=== PATIENT | female | born 1965 | race Caucasian/White ===

== ENCOUNTER 2019-02-11 21:39 | Inpatient (IN) | payer MEDICARE, OTHER ==
[~2019-02-11] VITALS: Ht 162.6 cm; Wt 68.0 kg
[~2019-02-11 21:39] MED LIST: BUPR150T10 PO; CLON1TAB12 PO; ESCI10TA PO; GABA-534 PO; PROG100C15 PO; VALA500T36 PO
--- NOTE | 2019-02-11 22:25 | NUR ---
GPS-GROUNDWATER CONSULTANT NOTES: ADMITTED A 53 YR-OLD, DIRECT ADMIT, FEMALE, FROM [facility]. ADMITTED ON 5150 FOR DTS. PER HOLD, PATIENT STATED SHE WANTED TO KILL HERSELF. UPON FACE TO FACE ASSESSMENT, PATIENT IS ALERT, ORIENTED X3, CALM, COOPERATIVE, DEPRESSED, INTERACTS WHEN ENGAGED. DENIES SI/HI OR HALLUCINATIONS AT THIS TIME. IN NO APPARENT DISTRESS NOTED. DENIES ANY PAIN OR DISCOMFORT. BELONGINGS WERE INVENTORIED AND CHECKED FOR CONTRABAND. PT. IS UNDER THE PSYCHIATRIC CARE OF DR. DANIEL SORIANO OBTAINED, AND UNDER THE MEDICAL CARE OF DR. CANALES. SKIN ASSESSMENT DONE INTACT. BED LOCKED AND PLACED ON LOWEST POSITION TO MAINTAIN SAFETY. FALL PRECAUTIONS IMPLEMENTED. WILL CONTINUE TO MONITOR Q15 MINS. FOR SAFETY AND BEHAVIOR. Addendum: 02/12/19 at 0555 by MARIAN MACK RN WILL ENDORSE TO ONCOMING NURSE TO NOTIFY MD TO RECONCILE HOME MEDS.
[2019-02-11] MEDS ORDERED: MAGNESIUM HYDROXIDE 30 ML UDC PO PRN (22:30)
[2019-02-11] MEDS ORDERED: MAG HYDROX/AL HYDROX/SIMETH 30 ML UDC PO PRN (22:30)
--- NOTE | 2019-02-11 23:40 | NUR ---
GPS-RN NOTIFIED KOKO CANALES REGARDING PT'S ADMISSION AND HOME MEDS TO RECONCILE.
[2019-02-12 00:19] VITALS: BP 149/96
[2019-02-12 08:00] VITALS: BP 100/58
[2019-02-12] MEDS ORDERED: OMEP20CA10 PO (08:50)
[2019-02-12] MEDS ORDERED: CHOL100044 PO (08:50)
[2019-02-12] MEDS ORDERED: BUPR300T54 PO (08:50)
[2019-02-12] MEDS ORDERED: PREG100C PO (08:52)
[2019-02-12 09:33] LABS: BASOPHILS % (AUTO) 0.3 % (0.0-2.0); EOSINOPHILS % (AUTO) 1.2 % (0.0-6.0); HEMATOCRIT 43 % (33-45); HEMOGLOBIN 14.7 g/dL (11.5-14.8); LYMPHOCYTES # (AUTO) 1.9 /CMM (0.8-4.8); LYMPHOCYTES % (AUTO) 32.2 % (20.0-44.0); MEAN CORPUSCULAR HGB CONC 34 g/dl (31.0-36.0); MEAN CORPUSCULAR VOLUME 90 fL (82-100); MONOCYTES # (AUTO) 0.4 /CMM (0.1-1.30); MONOCYTES % (AUTO) 7.4 % (2.0-12.0); NEUTROPHILS # (AUTO) 3.4 /CMM (1.8-8.9); NEUTROPHILS % (AUTO) 58.9 % (43.0-81.0); PLATELET COUNT (AUTO) 173 /CMM (150-450); RED BLOOD CELL COUNT(AUTO) 4.79 MIL/uL (4.0-5.2); WHITE BLOOD COUNT (AUTO) 5.8 K/uL (4.3-11.0)
[2019-02-12 09:50] LABS: ALBUMIN 3.9 g/dL (3.4-5.0); CALCIUM, SERUM 8.7 mg/dL (8.5-10.1); CREATININE 0.9 mg/dL (0.6-1.3); POTASSIUM 3.9 mmol/L (3.5-5.1); TOTAL PROTEIN, SERUM 6.6 g/dL (6.4-8.2)
[2019-02-12 09:51] LABS: CHOLESTEROL 173 mg/dL (<200); HDL CHOLESTEROL 49 mg/dL (40-60); LDL 101 mg/dL (0-99); TRIGLYCERIDES 161 mg/dL (30-150)
[2019-02-12] MEDS: BUPROPION XL 150 MG TAB.ER.24 PO SCH (14:25)
[2019-02-12] MEDS: ESCITALOPRAM OXALATE (10 MG) 10 MG TABLET PO SCH (14:25)
[2019-02-12 16:00] VITALS: BP 105/65
[2019-02-12] MEDS: PREGABALIN 100 MG CAPSULE PO SCH (17:17)
[2019-02-12 19:44] VITALS: BP 135/81
[2019-02-13 08:00] VITALS: BP 95/65
[2019-02-13] MEDS: CHOLECALCIFEROL 1,000 UNIT TABLET (VIT D3) PO SCH (08:26)
[2019-02-13] MEDS: ESCITALOPRAM OXALATE (10 MG) 10 MG TABLET PO SCH (08:27)
[2019-02-13] MEDS: VALACYCLOVIR HCL 500 MG TABLET PO SCH (08:27)
[2019-02-13] MEDS: PANTOPRAZOLE 40 MG TABLET.DR PO SCH (08:27)
[2019-02-13] MEDS: BUPROPION XL 150 MG TAB.ER.24 PO SCH (09:33)
[2019-02-13 17:11] VITALS: BP 140/95
[2019-02-13] MEDS: PREGABALIN 100 MG CAPSULE PO SCH (17:55)
[2019-02-13 20:17] VITALS: BP 113/86
[2019-02-14 08:00] VITALS: BP 107/61
[2019-02-14] MEDS: PANTOPRAZOLE 40 MG TABLET.DR PO SCH (09:14)
[2019-02-14] MEDS: BUPROPION XL 150 MG TAB.ER.24 PO SCH (09:15)
[2019-02-14] MEDS: VALACYCLOVIR HCL 500 MG TABLET PO SCH (09:15)
[2019-02-14] MEDS: CHOLECALCIFEROL 1,000 UNIT TABLET (VIT D3) PO SCH (09:16)
[2019-02-14] MEDS: ESCITALOPRAM OXALATE (10 MG) 10 MG TABLET PO SCH (09:16)
--- NOTE | 2019-02-14 11:00 | NUR ---
INITIAL DISCHARGE PLAN: Patient wished to return home to [address] [place] [address] . Pt will be transported back home through [facility]. SHIVA will help form a safe and proper discharge in collaboration with .
[2019-02-14] MEDS: QUETIAPINE FUMARATE 25 MG TABLET PO SCH ×2 (14:55→17:00)
[2019-02-14 16:00] VITALS: BP 126/77
--- NOTE | 2019-02-14 17:37 | NUR ---
GPS/RN-NOTES SEROQUEL 50 MG P.O NOT ADMINISTER DUE TO FIRST DOSE WAS GIVEN AT 1455.
[2019-02-14] MEDS: PREGABALIN 100 MG CAPSULE PO SCH (18:07)
[2019-02-14 19:57] VITALS: BP 94/59
[2019-02-14 20:32] VITALS: BP 94/59
--- NOTE | 2019-02-15 | NUR ---
DISTANCE LEARNING PROGRAM COORDINATOR NOTES REMAIN RESTING WITHOUT ANY DISTRESS NOTED. WILL CONTINUE MONITORING.
[2019-02-15 08:23] VITALS: BP 105/64
[2019-02-15] MEDS: PANTOPRAZOLE 40 MG TABLET.DR PO SCH (08:56)
[2019-02-15] MEDS: VALACYCLOVIR HCL 500 MG TABLET PO SCH (09:19)
[2019-02-15] MEDS: CHOLECALCIFEROL 1,000 UNIT TABLET (VIT D3) PO SCH (09:19)
[2019-02-15] MEDS: BUPROPION XL 150 MG TAB.ER.24 PO SCH (09:19)
[2019-02-15] MEDS: QUETIAPINE FUMARATE 25 MG TABLET PO SCH ×2 (09:20→17:34)
--- NOTE | 2019-02-15 09:44 | NUR ---
SUPPORTIVE COUNSELING: SW spoke with pt regarding her symptoms of kevin and her medication compliance. Pt stated that she is not feeling like herself with the new medication and wants to speak to the psychiatrist about making adjustments. SW stated that she would also inform psychiatrist of her concerns with her medication. Pt is withdrawn and stays to herself most of the time. SW addressed this and pt stated she liked being alone as the noises in the unit triggered her anxiety. Pt is eager to leave and stated that she she needs to leave soon as she has stuff to care of at home.
[2019-02-15 16:00] VITALS: BP 107/61
[2019-02-15] MEDS: PREGABALIN 100 MG CAPSULE PO SCH (17:34)
[2019-02-15 19:37] VITALS: BP 94/59
[2019-02-16 08:00] VITALS: BP 114/90
[2019-02-16] MEDS: PANTOPRAZOLE 40 MG TABLET.DR PO SCH (08:00)
[2019-02-16] MEDS: QUETIAPINE FUMARATE 25 MG TABLET PO SCH ×2 (08:00→17:11)
[2019-02-16] MEDS: VALACYCLOVIR HCL 500 MG TABLET PO SCH (08:00)
[2019-02-16] MEDS: BUPROPION XL 150 MG TAB.ER.24 PO SCH (08:00)
[2019-02-16] MEDS: CHOLECALCIFEROL 1,000 UNIT TABLET (VIT D3) PO SCH (08:00)
--- NOTE | 2019-02-16 10:30 | NUR ---
SUPPORTIVE COUNSELING: SHIVA informed pt that she has a Probable Cause hearing on this present day. Pt stated that she wants to attend the hearing and contest as she feels she no longer needs to be hospitalized. SHIVA explained to pt that if the court released pt that transportation needed to be arranged with [facility] as they needed 24 hour notice. Pt stated that if released on this present day she would take the train home instead of waiting for transpiration provided by [facility].
[2019-02-16] MEDS: DIVALPROEX SODIUM 250 MG TABLET.DR PO SCH ×2 (14:00→17:00)
--- NOTE | 2019-02-16 14:00 | NUR ---
Pt filed for a Habeas Corpus Write Hearing on this present day as pts 5250 was upheld for gravely disabled.
[2019-02-16] MEDS: PREGABALIN 100 MG CAPSULE PO SCH (17:10)
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
[2019-02-16] MEDS: ACETAMINOPHEN 325 MG TABLET PO PRN (18:38)
--- NOTE | 2019-02-16 18:46 | NUR ---
GPS NOTE THE PATIENT REFUSED DEPAKOTE DESPITE EXPLAINING RISKS AND BEMEFITS MULTIPLE TIMES.
[2019-02-16 20:00] VITALS: BP 117/74
[2019-02-17 08:00] VITALS: BP 141/95
[2019-02-17] MEDS: VALACYCLOVIR HCL 500 MG TABLET PO SCH (08:56)
[2019-02-17] MEDS: QUETIAPINE FUMARATE 25 MG TABLET PO SCH ×2 (08:56→17:44)
[2019-02-17] MEDS: PANTOPRAZOLE 40 MG TABLET.DR PO SCH (08:56)
[2019-02-17] MEDS: BUPROPION XL 150 MG TAB.ER.24 PO SCH (08:56)
[2019-02-17] MEDS: DIVALPROEX SODIUM 250 MG TABLET.DR PO SCH ×3 (08:56→17:44)
[2019-02-17] MEDS: CHOLECALCIFEROL 1,000 UNIT TABLET (VIT D3) PO SCH (08:56)
--- NOTE | 2019-02-17 15:19 | NUR ---
SUPPORTIVE COUNSELING: SW addressed pts lack of insight into her mental illness. SW provided reality based insight and explained to pt that making statements such as, "I'll stab myself to get out of here" will only prolong her hospitalization. Pt stated that she has been compliant with her medication and that all she wants is to leave so she can attend to her house and car which she is in the verge of losing. SW provided pt with insight and provided tools to better cope with her current stressors. SW also informed pt that she will be referring her to mental health services in [facility]. Pt stated that she is banned from the [facility] and that no one cares about her. Pt was interrupting SW and pt was difficult to redirect. Pts mood was labile and crying during most of the conversation.
--- NOTE | 2019-02-17 15:32 | NUR ---
SHIVA contacted Shabana at [facility] [phone] to arrange transportation for pts discharge on Wednesday02/20/19. Shabana stated she would call SHIVA back with a chicken picker time.
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
[2019-02-17 16:00] VITALS: BP 116/71
--- NOTE | 2019-02-17 16:05 | NUR ---
SHIVA emailed Shabana at [facility] [phone] [email or web address] with [employer]tra[employer] schedule.
[2019-02-17 16:24] VITALS: BP 116/71
[2019-02-17] MEDS: PREGABALIN 100 MG CAPSULE PO SCH (17:44)
[2019-02-17 19:55] VITALS: BP 95/63
[2019-02-18] MEDS: ACETAMINOPHEN 325 MG TABLET PO PRN (04:58)
[2019-02-18 08:00] VITALS: BP 127/70
--- NOTE | 2019-02-18 08:30 | NUR ---
ALERT AND ORIENTED X3.NO SPECIFIC COMPLAINTS OFFERED.REFUSED DEPAKOTE LAB DRAW.
[2019-02-18] MEDS: DIVALPROEX SODIUM 250 MG TABLET.DR PO SCH ×5 (09:00→18:08)
[2019-02-18] MEDS: CHOLECALCIFEROL 1,000 UNIT TABLET (VIT D3) PO SCH (09:21)
[2019-02-18] MEDS: BUPROPION XL 150 MG TAB.ER.24 PO SCH (09:21)
[2019-02-18] MEDS: PANTOPRAZOLE 40 MG TABLET.DR PO SCH (09:21)
[2019-02-18] MEDS: QUETIAPINE FUMARATE 25 MG TABLET PO SCH ×2 (09:22→18:07)
[2019-02-18] MEDS: VALACYCLOVIR HCL 500 MG TABLET PO SCH (09:22)
--- NOTE | 2019-02-18 15:53 | NUR ---
INDECISIVE ABOUT DEPAKOTE.STATED FINALLY THAT SHE WOULD TAKE MED AFRAID MD WOULD NOT SEND HER HOME IF SHE REFUSED MEDS.
[2019-02-18 16:00] VITALS: BP 102/62
[2019-02-18] MEDS: PREGABALIN 100 MG CAPSULE PO SCH (18:07)
--- NOTE | 2019-02-18 18:48 | NUR ---
NO CHANGE IN STATUS.
--- NOTE | 2019-02-18 19:30 | NUR ---
GPS RN NOTE, RECEIVED PATIENT AWAKE AND IN ROOM NO S/S OR COMPLAINTS OF PAIN AT THIS TIME. PATIENT IS DISPLAYING NO S/S OF APPARENT DISTRESS AT THIS TIME. PATIENT BREATHING IS UNLABORED WITH EQUAL RISE AND FALL OF THE CHEST. PATIENT IS ALERT AND ORIENTED X 4 ON ROOM AIR WITH A SPO2 OF 96%. PATIENT IS MED SELECTIVE, CALM, DEPRESSED, COOPERATIVE, UNKEPT AND NEEDS REORIENTATION. PATIENT DENIES SUICIDE AND HOMICIDAL IDEATIONS AT THIS TIME. PATIENT ASSISTED WITH TURNING AND REPOSITIONING Q2HR AND PRN FOR COMFORT AND CIRCULATION. PATIENT HAS NO NEEDS AT THIS TIME. PATIENT EDUCATED ON THE USE OF THE CALL RIOS. PATIENT BED SIDE RAILS ARE UP X 2 FOR SAFETY, BED IS LOCKED AND LOW. WILL CONTINUE TO MONITOR AND MAINTAIN SAFETY Q15 MIN WITH THE HELP OF STAFF.
[2019-02-18 20:00] VITALS: BP 120/92
[2019-02-19 08:00] VITALS: BP 126/68
--- NOTE | 2019-02-19 08:00 | NUR ---
RN NOTES INFORMED PHARMACY THAT THE OMNICELL NEEDED TO BE RESTOCKED WITH SEROQUEL 25MG.
--- NOTE | 2019-02-19 08:05 | NUR ---
RN NOTES PT REQUESTED TO TAKE ALL MEDICATIONS WHEN THEY ARE AVAILABLE. WILL CONTINUE TO FOLLOW UP.
[2019-02-19] MEDS: QUETIAPINE FUMARATE 25 MG TABLET PO SCH ×2 (09:15→16:34)
[2019-02-19] MEDS: PANTOPRAZOLE 40 MG TABLET.DR PO SCH (09:16)
[2019-02-19] MEDS: CHOLECALCIFEROL 1,000 UNIT TABLET (VIT D3) PO SCH (09:16)
[2019-02-19] MEDS: DIVALPROEX SODIUM 250 MG TABLET.DR PO SCH ×3 (09:16→16:34)
[2019-02-19] MEDS: BUPROPION XL 150 MG TAB.ER.24 PO SCH (09:17)
[2019-02-19] MEDS: VALACYCLOVIR HCL 500 MG TABLET PO SCH (09:17)
--- NOTE | 2019-02-19 10:22 | NUR ---
RN NOTES INFORMED DR SANCHEZ THAT PATIENT REFUSED VALPROIC ACID LAB DRAW.
[2019-02-19 16:00] VITALS: BP 109/67
[2019-02-19] MEDS: PREGABALIN 100 MG CAPSULE PO SCH (17:07)
--- NOTE | 2019-02-19 19:30 | NUR ---
GPS RN NOTE, RECEIVED PATIENT AWAKE AND IN ROOM NO S/S OR COMPLAINTS OF PAIN AT THIS TIME. PATIENT IS DISPLAYING NO S/S OF APPARENT DISTRESS AT THIS TIME. PATIENT BREATHING IS UNLABORED WITH EQUAL RISE AND FALL OF THE CHEST. PATIENT IS ALERT AND ORIENTED X 4 ON ROOM AIR WITH A SPO2 OF 97%. PATIENT IS MED SELECTIVE, CALM, DEPRESSED, COOPERATIVE, UNKEPT AND NEEDS REORIENTATION. PATIENT DENIES SUICIDE AND HOMICIDAL IDEATIONS AT THIS TIME. PATIENT ASSISTED WITH TURNING AND REPOSITIONING Q2HR AND PRN FOR COMFORT AND CIRCULATION. PATIENT HAS NO NEEDS AT THIS TIME. PATIENT EDUCATED ON THE USE OF THE CALL RIOS. PATIENT BED SIDE RAILS ARE UP X 2 FOR SAFETY, BED IS LOCKED AND LOW. WILL CONTINUE TO MONITOR AND MAINTAIN SAFETY Q15 MIN WITH THE HELP OF STAFF.
[2019-02-19 19:37] VITALS: BP 130/79
[2019-02-20] MEDS: PANTOPRAZOLE 40 MG TABLET.DR PO SCH (07:30)
[2019-02-20 08:00] VITALS: BP 101/62
--- NOTE | 2019-02-20 08:00 | NUR ---
SW received an email from Shabana at [facility] [phone] [email or web address] with an Amtrak ticket for pt scheduled to leave from [place] to [place] on this present day at 3:38pm.
[2019-02-20] MEDS: QUETIAPINE FUMARATE 25 MG TABLET PO SCH (08:49)
[2019-02-20] MEDS: CHOLECALCIFEROL 1,000 UNIT TABLET (VIT D3) PO SCH (08:49)
[2019-02-20] MEDS: DIVALPROEX SODIUM 250 MG TABLET.DR PO SCH ×2 (08:50→13:58)
[2019-02-20] MEDS: VALACYCLOVIR HCL 500 MG TABLET PO SCH (08:50)
[2019-02-20] MEDS: BUPROPION XL 150 MG TAB.ER.24 PO SCH (08:50)
--- NOTE | 2019-02-20 09:36 | NUR ---
SUPPORTIVE COUNSELING: SW spoke with pts regarding her discharge on this present day and offered resources for substance abuse treatment. Pt was hostile and uncooperative; she stated she was not leaving and that she wanted to go to her Habeas Corpus hearing. SW explained that the psychiatrist has discharged her therefore she did not need to attend as the Habeas Corpus Hearing is only to contest the 5250 which will be broken once she discharges on this present day. Pt was adamant about attending and did not want to hear what SW had to say. Pts insight and judgement remains poor
--- NOTE | 2019-02-20 14:51 | NUR ---
DISCHARGE NOTE: Pt was discharged at 2:30pm via public transportation, pt was given a TAP card to take the bus to [place] [place] where she is going to take [employer]trak home to [address] [place], [place] [id number] . Amtrak ticket was purchased by Shabana from [facility] in [place]. Pt has no family to notify. Pts mood was agitated and labile with congruent affect. Pt was refusing to leave the hospital stating she wanted to attend her WRIT Hearing which was scheduled for 02/21/19. Pt denied suicidal/homicidal ideation and denied visual/auditory hallucinations. Pt was provided a referral to [facility] Address: [address] [place] [address] where she can call to schedule an appointment. Pt was also encouraged to address her substance abuse issues with Psychiatrist: Dr. Eze Marks Address: [address] [place] [address] . SW faxed clinical information to Dr Marks at . Pt will schedule a follow up appointment when she arrives home as she stated she doesn't know if she'll have a car once she gets there. Pt will also schedule a follow up appointment with [facility]: Dr. Grabiel Marinelli Address: [address] [place] [address] . The multidisciplinary exitcare form was done, printed, signed, and given to the patient.
--- NOTE | 2019-02-20 15:07 | NUR ---
RN NOTE :PATIENT ALERT ,VERBALLY RESPONSIVE ,SEEN BY AND .PATIENT DENIES SUICIDAL IDEATION HOMICIDAL IDEATION ,DENIES AUDITORY VISUAL HALLUCINATION .VS STABLE ,NO S/S OF DISTRESS .ALL BELONGINGS RETURNED TO PATIENT .TICKET FOR TRAIN TO HOME GIVEN ALL PRESCRIPTION GIVEN AND EXPLAINED TO PATIENT,ABLE TO VERBALIZE UNDERSTANDING .PATIENT DISCHARGE AT 1430 TOKEN GIVEN BY TELEPHONIC NURSE TO TAKE BUS TO TRAIN STATION.
== END 2019-02-20 14:30 | disposition home or self-care (01) | DRG 885 ==
LOC: GPS 22:17
PROVIDERS: ADMIT Psychiatry & Neurology Psychiatry; ATTEND Hospitalist
DX: F33.2 Major depressive disorder, recurrent severe without psychotic features (principal); F23 Brief psychotic disorder; R45.851 Suicidal ideations; F12.10 Cannabis abuse, uncomplicated; F41.9 Anxiety disorder, unspecified; I10 Essential (primary) hypertension; K21.9 Gastro-esophageal reflux disease without esophagitis; M85.80 Other specified disorders of bone density and structure, unspecified site; G47.33 Obstructive sleep apnea (adult) (pediatric); B00.9 Herpesviral infection, unspecified; G62.9 Polyneuropathy, unspecified; M81.0 Age-related osteoporosis without current pathological fracture; F16.10 Hallucinogen abuse, uncomplicated; Z85.850 Personal history of malignant neoplasm of thyroid
CPT/HCPCS: 36415; 80053-TC; 80061-TC; 85025-TC; 87081-TC